=== PATIENT | female | born 1995 | race Caucasian/White ===

== ENCOUNTER 2024-01-28 14:49 | Emergency (ER) | payer OTHER, SELFPAY ==
[2024-01-28 14:51] VITALS: BP 133/92
[2024-01-28 17:14] LABS: % Basophils 0.6 % (0-2); % Eosinophils 0.7 % (0-6); % Immature Granulocytes 0.3 % (0-0.5); % Lymphocytes 22.7 % (20.5-51.1); % Monocytes 9.2 % (1.7-9.3); % Neutrophils 66.5 % (42.2-75.2); Absolute Basophils 0.1 10^3/uL (0-0.2); Absolute Eosinophils 0.1 10^3/uL (0-0.7); Absolute Lymphocytes 2.4 10^3/uL (1.2-3.4); Absolute Neutrophils 6.9 10^3/uL (1.4-6.5); Hemoglobin 14.6 g/dL (12.0-16.0); Mean Corpuscular Hgb 30.4 pg (27.0-31.0); Mean Corpuscular Volume 89.4 fL (81.0-99.0); Mean Platelet Volume 9.5 fL (7.4-10.4); Nucleated Red Blood Cells % 0 %; Platelet Count 277 10^3/uL (130-400); Red Blood Cell Count 4.81 10^6/uL (4.20-5.40); Red Cell Dist. Width 11.5 % (11.5-14.5); White Blood Cell Count 10.4 10^3/uL (4.8-10.8)
[2024-01-28 17:49] LABS: Beta HCG Quantitative 632.71 mIU/ml
[2024-01-28 18:44] VITALS: BP 125/81; BP 126/80; BP 135/79; PULSE 100; PULSE 82; PULSE 87
[2024-01-28 19:00] VITALS: BP 120/68
[2024-01-28 20:00] VITALS: BP 103/73
[2024-01-28 21:00] VITALS: BP 117/83
--- NOTE | 2024-01-28 21:36 | ED.GENMED ---
History of Present Illness
General
Chief Complaint: Problems
Source: patient and spouse
Exam Limitations: none
Time Seen by Provider: 01/28/24 16:27
Nursing documentation reviewed up to this point in time: agreed with
History of Present Illness
History of Present Illness:
28-year-old female currently 5.5 weeks by date G1, P0 presenting to the emergency department today with concerns of vaginal bleeding. She did have spotting over the past but today has noticed heavier bleeding with small clots to pads
throughout the day today. She is yet to follow-up with her senior teller but has been in contact with them about this. She has mild cramping denies any severe pain no discharge fevers or abdominal pain
Review of Systems
Review of Systems
Allergies reviewed?: Yes
All Other Systems: ROS reviewed and negative except as documented in HPI and ROS
Phy Exam
Physical Exam
Physical Exam:
GENERAL: Alert , in no apparent distress
EYE: pupils equal and reactive
NECK: Supple, no significant adenopathy.
ENT: o/p clr, mmm.
CARDIAC: Regular rate and rhythm .
LUNGS: Clear breath sounds bilaterally, no acute respiratory distress, no wheezes/rales/rhonchi
ABDOMEN: Soft, without focal tenderness, no r/g, no cvat
NEUROLOGICAL: Alert and oriented, no focal neuro deficits
SKIN: Warm and dry, skin intact.
MUSCULOSKELETAL: No edema, well perfused.
PSYCH: Normal and appropriate interaction.
Course
Orders/Labs/Results
Orders:
Orders
01/28/24 16:52
IV Insert/Care/Rem.- Treatment PRN
Orthostatic VS- Treatment ONCE
Pulse Ox/spot Check [RESP] Urgent
Quantity: 1
Special Instructions: ON ROOM AIR
US 1st Trimester Urgent
Comment:
Reason For Exam: 5.5 weeks by datys vaginal bleeding/cramping
01/28/24 17:07
Type+Screen Urgent
Beta HCG Quantitative Urgent
Is this a screen?: No
Complete Blood Count/With Diff Urgent
01/28/24 17:14
ABO2 Urgent
BBK Wristband Number:
Associate notified that ABO2 has been ordered: [id number]
Date: 01/28/24
Time: 17:15
Membership Director ID: [id number]
Abnormal Lab Results
01/28/24
17:07
Absolute Neuts (auto) 6.9 H 10^3/uL
(1.4-6.5)
Absolute Monos (auto) 1.0 H 10^3/uL
(0.1-0.6)
01/28/24 17:07
Vital Signs
Initial and Last Documented VS:
Initial Vital Signs
Temp Pulse Resp BP Pulse Ox
98.3 F 83 18 133/92 99
01/28/24 14:51 01/28/24 14:51 01/28/24 14:51 01/28/24 14:51 01/28/24 14:51
Last Documented Vital Signs
Temp Pulse Resp BP Pulse Ox
98.3 F 83 18 117/83 100
01/28/24 14:51 01/28/24 14:51 01/28/24 14:51 01/28/24 21:00 01/28/24 21:00
Information
Weeks gestation: Weeks:
Location: Location:
MDM/Problems Addressed
MDM/Problems Addressed:
28-year-old female presenting to the emergency department today with concerns of vaginal bleeding in first trimester . Currently 5 and half weeks by dates. 2 pads throughout the day today. Mild cramping this is the patient's first
. Labs were obtained showed normal hemoglobin and a quantitative hCG of 632. Ultrasound showed gestational sac but no yolk sac. Possibilities of early , missed or ectopic still possible. Case was discussed
with obstetrics that while the patient follow-up in 2 days for reassessment. Otherwise patient stable for discharge return precautions given.
*Critical Care Note
Total Time (30-74mins, 75-104mins- exclusive of procedures): Not Applicable
ED Attending Note
-
Portions of this chart may have been created with voice recognition software.� Occasional wrong word or��sound alike� substitutions may have occurred due to the inherent limitations of voice recognition software.
Discharge Plan
Departure
Patient Disposition: Home (Routine Discharge)
Date of Disposition: 01/28/24
Time of Disposition: 21:37
Patient with high blood pressure during this ER visit?: No
Condition: Good
Covid-19: Not Applicable
Discharge Problem:
First trimester bleeding
Instructions: Threatened Miscarriage (DC)
Referrals:
Heather Healy PA [Family Provider] -
Activity Restrictions/Additional Instructions:
You came to the emergency department today with concerns of bleeding. Here you had a gestational sac on ultrasound but no obvious yolk sac. The case was discussed with obstetrics who would like to see you in the office on Tuesday for further
testing. Return to the emergency department for any worsening, new or concerning symptoms.
Interventions
Interventions:
*Risk Screen - Suicide Last Done: 01/28/24 14:51
*General Assessment Last Done: 01/28/24 14:51
*Neglect/Abuse Screening Last Done: 01/28/24 14:51
ED- Fall Risk Assessment Last Done: 01/28/24 21:49
*ED COVID-19 Vaccine History Last Done: 01/28/24 17:12
*Nursing Disposition Last Done: 01/28/24 21:49
ED-Female Genitourinary Assessment Last Done: 01/28/24 17:10
Discharge Date and Time
Discharge Date/Time: 01/28/24 21:49
Print Language: MONGOLIAN
== END 2024-01-28 21:49 | disposition home or self-care (01) ==
LOC: EMR 14:49
PROVIDERS: Physician Assistant; EMERGENCY PHYSICIAN Emergency Medicine; FAMILY PHYSICIAN Physician Assistant Medical
DX: O20.9 Hemorrhage in early pregnancy, unspecified (principal); Z3A.01 Less than 8 weeks gestation of pregnancy
CPT/HCPCS: 99284; 76801; 84702; 85025; 86850; 86900; 86901

== ENCOUNTER → 2024-07-18 06:53 | Outpatient (REF) | payer OTHER, SELFPAY | LOC: PNTC 06:53 | PROVIDERS: ATTENDING PHYSICIAN Nurse Practitioner Family | DX: O36.80X0 Pregnancy with inconclusive fetal viability, not applicable or unspecified (principal); N96 Recurrent pregnancy loss; O99.891 Other specified diseases and conditions complicating pregnancy | CPT/HCPCS: 76801 ==

== ENCOUNTER → 2024-08-07 10:42 | Outpatient (REF) | payer OTHER, SELFPAY | LOC: RAD 10:42 | PROVIDERS: ATTENDING PHYSICIAN Obstetrics & Gynecology | DX: O02.1 Missed abortion (principal) | CPT/HCPCS: 76801 ==

== ENCOUNTER 2024-08-08 07:18 | Day surgery (SDC) | payer OTHER, SELFPAY ==
[2024-08-08] VITALS (8 sets, daily range): BP systolic 93–110; BP diastolic 54–68; BMI 25.4
[2024-08-08] MEDS: NORMOSOL-R/PLASMALYTE-A 1000 IV (08:16)
[2024-08-08 08:32] LABS: Hematocrit 36.7 % (37.0-47.0); Hemoglobin 12.8 g/dL (12.0-16.0)
[2024-08-08] MEDS: VIBRAMYCIN 270 MG IV (10:00)
== END 2024-08-08 12:25 | disposition home or self-care (01) ==
LOC: SDS 07:18
PROVIDERS: ATTENDING PHYSICIAN Obstetrics & Gynecology
DX: O02.1 Missed abortion (principal); Z3A.01 Less than 8 weeks gestation of pregnancy
CPT/HCPCS: 59820; 88305; 85014; 85018; 86850; 86900; 86901

== ENCOUNTER → 2025-02-11 18:04 | Outpatient (REF) | payer OTHER, SELFPAY | LOC: MRI 18:04 | PROVIDERS: ATTENDING PHYSICIAN Physician Assistant; FAMILY PHYSICIAN Physician Assistant Medical | DX: R43.2 Parageusia (principal) | CPT/HCPCS: 70553; A9575 ==